=== PATIENT | female | born 1985 | race Caucasian/White ===

== ENCOUNTER → 2016-10-23 | Outpatient (REF) ==
[~2016-10-23] MED LIST: BENADRYL25 M2 PO; DICLEGIS PO; MOTRIN 800800 MG/TAB PO; PERCOCET 325 MG1 TA2 PO; PHENERGAN 25 TA25 MG PO; PRENATAL MVI PO
== END ==
LOC: WSOH 13:14
DX: Z02.1 Encounter for pre-employment examination (principal)

== ENCOUNTER → 2016-10-26 | Outpatient (REF) | LOC: WSOH 13:30 | DX: Z02.1 Encounter for pre-employment examination (principal) ==

== ENCOUNTER → 2016-10-28 | Outpatient (REF) | LOC: WSOH 14:37 | DX: Z23 Encounter for immunization (principal) ==

== ENCOUNTER → 2016-11-02 | Outpatient (REF) | LOC: WSOH 14:08 | DX: Z11.1 Encounter for screening for respiratory tuberculosis (principal) ==

== ENCOUNTER → 2016-11-05 | Outpatient (REF) | LOC: WSOH 12:58 | DX: Z02.89 Encounter for other administrative examinations (principal) ==

== ENCOUNTER → 2016-12-04 | Outpatient (REF) | LOC: WSOH 09:57 | DX: Z01.89 Encounter for other specified special examinations (principal) ==

== ENCOUNTER → 2017-05-05 | Outpatient (REF) | LOC: WSOH 15:54 | DX: Z02.89 Encounter for other administrative examinations (principal) ==